=== PATIENT | male | born 1985 | race Caucasian/White ===

== ENCOUNTER 2016-09-13 06:53 | Day surgery (SDC) | payer BC ==
[~2016-09-13] VITALS: Ht 177.8 cm; Wt 120.5 kg
[2016-09-13] MEDS ORDERED: TRICOR145 MG PO (08:55)
[2016-09-13] MEDS ORDERED: TRAZODONE HCL50 MG PO (08:57)
[2016-09-13] MEDS ORDERED: PRISTIQ50 MG PO (08:57)
[2016-09-13] MEDS ORDERED: CHANTIX 1 MG TAB1 MG PO (08:58)
[2016-09-13] MEDS ORDERED: NIASPAN500 MG PO (08:59)
[2016-09-13] MEDS ORDERED: PEPCID AC20 MG PO (08:59)
[2016-09-13 09:00] VITALS: BP 121/76; Ht 177.8 cm; Wt 120.5 kg
--- NOTE | 2016-09-13 14:32 | OP ---
PATIENT NAME: LILIA SMITH MEDICAL RECORD: [id number] :83 LOCATION:[facility] ADMISSION DATE: SURGEON: FRED HUGHES MD DATE OF OPERATION: 09/13/2016 SURGEON: Fred Hughes MD PREOPERATIVE DIAGNOSIS: Dysphagia. POSTOPERATIVE DIAGNOSIS: Dysphagia. PROCEDURE PERFORMED: Esophagogastroduodenoscopy with biopsy. ANESTHESIA: Total intravenous anesthesia. COMPLICATIONS: None. SPECIMENS: 1. Duodenum. 2. Antrum. 3. Gastroesophageal junction. Case was contaminated. ESTIMATED BLOOD LOSS: Minimal. OPERATIVE COURSE: After consent was obtained, the patient was taken to the endoscopy suite. A timeout was taken to confirm the correct patient and procedure. Hurricaine Lawson was administered. A bite block was placed. Total intravenous anesthesia was administered. The patient was placed in left lateral decubitus position. The scope was inserted through the biteblock into the oropharynx. Under direct endoscopic vision it was advanced posterior to the epiglottis. The scope passed without resistance posterior to the epiglottis. The scope was advanced through the stomach under direct endoscopic vision. The stomach was insufflated. The scope was passed to the prepyloric region. The pylorus was intubated. The duodenum was inspected. There were no obvious abnormalities. Duodenum biopsies were taken. The scope was withdrawn into the antrum. Again, there was an ulcerative lesion noted at the prepyloric area. Multiple biopsies were taken. Antral biopsies were next taken. The remaining ports in the stomach appear within normal limits. The scope was retroflexed. There was no evidence of hiatal hernia. The scope was withdrawn to the GE junction. There were several noted abnormalities, irregularities of the Z-line, multiple biopsies were taken. The GE junction looked consistent with gastroesophageal reflux disease. The scope was withdrawn through the esophagus slowly. There were no abnormalities associated with the esophagus. Again, the upper esophageal sphincter duration cricopharyngeus was grossly examined. The scope was passed through the upper esophageal sphincter multiple times without difficulty. At this time, the procedure was terminated. The scope was removed. At the end of the case, all needle and instrument counts were correct. No complications occurred. The patient was transferred to recovery room in satisfactory condition. TRANSINT:[id number] Voice Confirmation ID: [id number] DOCUMENT ID: [id number] OPERATIVE REPORT [id number] LILIA SMITH FRED HUGHES MD at 1432 CC: [id number] DICTATION DATE: 09/13/16 1025 PLASTER LATHER: 09/13/16 1204 [id number] [place] [address]
--- NOTE | 2016-09-13 17:02 | NUR ---
1115 TAKING ICE CHIPS WITHOUT ANY PROBLEMS. Adin MEDRANO R.N.
--- NOTE | 2016-09-13 17:07 | NUR ---
1235 DRESSED, AWAKE & ALET. 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 PT VOICED UNDERSTANDING. TO PRIVATE CAR ESCORTED BY Ashley NICHOLAS CNA. HOME WITH MOTHER. Adin MEDRANO R.N.
== END 2016-09-13 12:35 | disposition home or self-care (01) ==
LOC: D.OPS 06:53
DX: R13.12 Dysphagia, oropharyngeal phase (principal); R13.14 Dysphagia, pharyngoesophageal phase; K21.9 Gastro-esophageal reflux disease without esophagitis; F17.200 Nicotine dependence, unspecified, uncomplicated

== ENCOUNTER → 2016-10-01 11:07 | Outpatient (CLI) | payer BC ==
[2016-09-13 09:00] VITALS: BMI 38.1
[~2016-10-01 11:07] MED LIST: CHANTIX 1 MG TAB1 MG PO; NIASPAN500 MG PO; PEPCID AC20 MG PO; PRISTIQ50 MG PO; TRAZODONE HCL50 MG PO; TRICOR145 MG PO
== END | disposition home or self-care (01) ==
LOC: D.LAB 11:07
DX: K29.60 Other gastritis without bleeding (principal)